=== PATIENT | male | born 1990 | race Caucasian/White ===

== ENCOUNTER 2020-08-13 11:10 | Inpatient (IN) | payer BC ==
[2020-08-13] VITALS: BP 131/85
[~2020-08-13] VITALS: Ht 182.9 cm; Wt 117.0 kg
--- NOTE | 2020-08-13 11:22 | NUR ---
PT TO ROOM WITH A STAEDY GAIT.
[2020-08-13] MEDS ORDERED: NAPROXEN250 MG PO (11:25)
[2020-08-13] MEDS ORDERED: METOPROL TAR25 MG PO (11:25)
[2020-08-13] MEDS ORDERED: LISINOPRIL20 MG PO (11:25)
[2020-08-13] MEDS ORDERED: CYCLOBENZAPR5 MG PO (11:26)
[2020-08-13] MEDS ORDERED: METFORMIN HCL500 M2 PO (11:26)
[2020-08-13 12:07] LABS: HEMATOCRIT 44.6 % (39.0-50.0); HEMOGLOBIN 14.4 g/dl (14.0-18.0); IMMATURE GRANULOCYTES 1.1 % (0.0-5.0); MEAN CELL VOLUME 84.2 fL CALC (80.0-100.0); MEAN CORPUSCULAR HGB 27.2 pG CALC (26.0-32.0); MEAN CORPUSCULAR HGB CONC 32.3 g/dL CAL (32.0-36.0); NEUT# 16.47 thou/uL (1.82-7.42); RED BLOOD COUNT 5.3 mill/uL (4.70-6.10)
--- NOTE | 2020-08-13 12:09 | NUR ---
PT RESTING IN BED. NO DISTRESS. STABLE ON MONIT. OR. CALL LIGHT WITHIN REACH
[2020-08-13 12:24] LABS: ALBUMIN 4.4 g/dL (3.2-5.0); ALKALINE PHOSPHATASE 83 u/l (38-126); AMYLASE 346 u/l (30-110); ANION GAP 13 (6-22 (CALC)); BILIRUBIN, TOTAL 0.9 mg/dL (0.0-1.4); BUN 13 mg/dL (9-20); BUN/CREATININE RATIO 12 (12-20 (CALC)); CARBON DIOXIDE 29 mmol/l (22-30); CHLORIDE 97 mmol/l (95-108); CREATININE 1.1 mg/dL (0.7-1.3); GFR > 60 ML/MIN (>=60 (CALC)); GFR FOR AFR.AMER. > 60 ML/MIN (>=60 (CALC)); LIPASE 1825 u/l (23-300); POTASSIUM 5.1 mmol/l (3.5-5.1); SGOT/AST 34 u/l (17-59); SODIUM 134 mmol/l (137-146); TOTAL PROTEIN 7.9 g/dL (6.3-8.2)
[2020-08-13 12:35] LABS: MYOGLOBIN 63 ng/mL (0 - 121)
[2020-08-13 12:54] LABS: URINE BILIRUBIN - DIPSTICK NEGATIVE (NEGATIVE); URINE BLOOD DIPSTICK NEGATIVE (NEGATIVE); URINE COLOR YELLOW; URINE GLUCOSE - DIPSTICK NEGATIVE (NEGATIVE); URINE KETONE TRACE mg/dL (NEGATIVE); URINE LEUK ESTERASE NEGATIVE (NEGATIVE); URINE PH 6.5 (4.5-8.0); URINE PROTEIN - DIPSTICK >=300 mg/dL (NEG-TRACE); URINE SPECIFIC GRAVITY >=1.030
[2020-08-13 12:56] LABS: URINE EPITHELIAL CELLS FEW EPI/hpf (0-FEW); URINE MUCUS MODERATE hpf (NONE-FEW); URINE NITRITE - DIPSTICK NEGATIVE (Negative)
--- NOTE | 2020-08-13 13:00 | NUR ---
PT REPORTS PAIN IMPROVED BUT STILL WITH DISCOMFORT. WILL CONTINUE TO MONITOR. NO OTHER CONCERNS VOICED.
--- NOTE | 2020-08-13 14:08 | NUR ---
PT RESTING. REPORT PAIN MUCH IMPROVED. WILL CONTINUE TO MONITOR.
--- NOTE | 2020-08-13 15:48 | NUR ---
REPORT [facility]IV[facility]
[2020-08-13 16:04] VITALS: BP 158/80
--- NOTE | 2020-08-13 16:04 | NUR ---
PATIENT ARRIVED ON FLOOR AT THIS TIME FROM ED. PATIENT ALERT AND ORIENTED X 3 PATIENT ROOM ORIENTATION GIVEN TO INCLUDE ROOM SAFETY AND HOW TO USE CALL LIGHT. SIDERAILS ARE UP X 2. GOVERNMENT SERVICES PROFESSIONAL DONE SEE INTERVENITONS. LUNG TADEO ARE CLEAR AT THIS TIME IN ALL FOUR LUNG TADEO. BOWEL SOUNDS ARE PRESENT IN ALL FOUR QUADRANTS AND PATIENT STATED HE HAD A BOWEL MOVEMENT THIS AM. PATIENT DOES PRESENT WITH TEMPRATURE OF 99.5 AT THIS TIME. PATIENT STATES HIS PAIN LEVEL IS A 7 CURRENTLY. PATIENT HAS TELE MONITOR ON AND IS BEING MONITORED BY ED. PATIENT PRESENTS WITH NO KNOWN OPEN SKIN ISSUES AT THIS TIME.
--- NOTE | 2020-08-13 16:28 | NUR ---
650MG OF TYLENOL GIVEN FOR TEMP OF 99.5 AT THIS TIME. WILL REASSESS.
--- NOTE | 2020-08-13 17:14 | NUR ---
2MG OF MORPHINE GIVEN IV AT THIS TIME FOR PAIN IN UPPER LEFT ABDOMEN. PATIENT STATES HIS PAIN LEVEL IS A 7 OUT OF THE PAIN SCALE OF 0-10 WILL CONTINUE TO MONITOR.
--- NOTE | 2020-08-13 18:25 | NUR ---
PATIENT REASSESSED AT THIS TIME AND IT IS NOW 99.8. ICE PACKS APPLIED UNDER ARMPITS AT THIS TIME. PATIENT REMINDED TO CALL NURSE OF ANY CHANGES.
[2020-08-13 19:00] VITALS: BP 154/87
--- NOTE | 2020-08-13 19:57 | NUR ---
ON 1899 VITAL SIGNS NOTED THAT PT VS WERE, 101.2,154/87,107,20,95%. IT IS TOO EAARLY FOR ANOTHER DOSE OF TYLENOL. NOTIFIED HAND STRAIGHTENER AND ADVISED OF VS AND THAT PT HAS A WBC LEVEL OF 20.3. PER MD INCREASE NS TO 150ML/HR, MOTRIN 600MG BID NEEDED, AND NO ORDERS FOR ABT'S AT THIS TIME. BLOOD CULTURES ARE PENDING. WILL CONTINUE TO MONITOR AND WILL RECHECK VS IN APPROXIMATLY 45MIN.
--- NOTE | 2020-08-13 20:54 | NUR ---
TEMP RECHECKED, 99.8. WILL MONITOR. NO S/S OF DISTRESS. PT C/O PAIN IN ABDOMEN/BACK. [id number] ASSESSMENTS COMPLETED, SEE DOCUMENTATION. SAFETY PRECAUTIONS IN PLACE, BED IN LOWEST POSITION, CALL LIGHT WITHIN REACH.
--- NOTE | 2020-08-13 22:19 | NUR ---
RECIEVED CALL FROM ER INDICATING THAT PATIENT HR IS RUNNING HIGH 120'S AND LOW 130'S. SPOKE WITH PHYSICIAN, NEW LAB ORDERS ORDERED, DILAUDID ORDERED, INCREASE OF FLUIDS. ALL ORDERS PUT IN BY PHYSICIAN. WILL MONITOR HIS PAIN Q2HR UNITL VS IMPROVE. ABT ORDERED.
[2020-08-13 22:35] VITALS: BP 143/88
[2020-08-14] VITALS (7 sets, daily range): BP systolic 128–166; BP diastolic 80–97
--- NOTE | 2020-08-14 00:10 | NUR ---
PT RESTING QUIETLY IN BED WITH EYES CLOSED. FLUIDS CONTINUE AT 200ML/HR. DILAUDID EFFECTIVE FOR PAIN AT THIS TIME. SECOND IV STARTED TO RIGHT WRIST WITHOUT DIFFICULTY. 1ST DOSE OF ZOSYN ADMINSTERED WITHOUT COMPLICATIONS. NO S/S OF ADVERSE REACTIONS R/T IV ABT. FEVER HAS DECREASED TO 98.7. NO S/S OF DISTRESS NOTED. NO COMPLAITS VOICED AT THIS TIME. WILL MONITOR
--- NOTE | 2020-08-14 03:27 | NUR ---
ON ROUNDS PRINTER SLOTTER HELPER NOTED THAT PT HR WAS UP TO 130 AND HIS O2 SATURATIONS WERE DOWN TO 85%, UPON ASSESSMENT PT DENIES SOB, NO S/S OF DISTRESS NOTED. PLACED PT ON O2 @ 2L VIA NC. O2 SATURATIONS CAME UP TO 95%. ON SHIFT RN AGREED WITH COURSE OF ACTION, LEAVING ON THE OXYGEN AT THIS TIME. WILL CONTINUE TO MONITOR PT THROUGHOUT THE SHIFT.
--- NOTE | 2020-08-14 04:29 | NUR ---
PT RESTING IN BED, VS ARE STABILIZING. O2 CONINUES AT THIS TIME FOR LOW SATURATIONS. PT TOLERATING O2 WELL. NO COMPLAINTS VOICED. PAIN CONTROLLED WITH IV DILAUDID. BREATHING EVEN AND UNLABORED, DENIES SOB. HR REMAINS IN THE HIGH 120'S-LOW 130'S. ASYMPTOMATIC FOR TACHYCARDIA. PT DENIES CHEST PAIN AND DENIES PALPITATIONS. SAFETY PRECAUTIONS ARE IN PLACE, BED IN LOWEST POSITION, CALL LIGHT WITHIN REACH. WILL MONITOR
[2020-08-14 04:54] LABS: MEAN CELL VOLUME 86.3 fL CALC (80.0-100.0); MEAN CORPUSCULAR HGB 27.1 pG CALC (26.0-32.0); MEAN CORPUSCULAR HGB CONC 31.4 g/dL CAL (32.0-36.0); RED BLOOD COUNT 4.39 mill/uL (4.70-6.10); RED CELL DISTRI WIDTH 14.2 % (11.5-15.5)
[2020-08-14 04:58] LABS: HEMATOCRIT 37.9 % (39.0-50.0); HEMOGLOBIN 11.9 g/dl (14.0-18.0)
[2020-08-14 05:08] LABS: ALKALINE PHOSPHATASE 62 u/l (38-126); AMYLASE 231 u/l (30-110); ANION GAP 10 (6-22 (CALC)); BILIRUBIN, TOTAL 0.9 mg/dL (0.0-1.4); BUN 8 mg/dL (9-20); BUN/CREATININE RATIO 9 (12-20 (CALC)); CARBON DIOXIDE 24 mmol/l (22-30); CHLORIDE 103 mmol/l (95-108); CREATININE 0.9 mg/dL (0.7-1.3); GFR > 60 ML/MIN (>=60 (CALC)); GFR FOR AFR.AMER. > 60 ML/MIN (>=60 (CALC)); HDL CHOLESTEROL 28 mg/dL (>=40); LIPASE 1084 u/l (23-300); POTASSIUM 4.3 mmol/l (3.5-5.1); SGOT/AST 21 u/l (17-59); SODIUM 133 mmol/l (137-146); TOTAL CHOLESTEROL 139 mg/dl (0-199)
[2020-08-14 05:11] LABS: ALBUMIN 3.3 g/dL (3.2-5.0); TOTAL PROTEIN 5.8 g/dL (6.3-8.2); TOTAL TRIGLYCERIDES 516 mg/dl (30-149)
--- NOTE | 2020-08-14 07:30 | NUR ---
SHIFT CHANGE REPORT, PT AWAKE ALERT AND ORIENTED RESTING IN BED, C/O ABD PAIN @ 5/10 AT THIS TIME, IVF INFUSING, TELE MONITOR IN PLACE, PAIN CONCERN ADDRESSED, CALL BUTTERFIELD IN REACH AND BED LOCKED IN LOWEST POSITION.
--- NOTE | 2020-08-14 10:03 | NUR ---
BEING TRANSPORTED OFF UNIT NOW VIA W/C BY STAFF TO [facility], PT INFORMED OF PROCEDURE AND STATED UNDERSTANDING.
--- NOTE | 2020-08-14 10:24 | NUR ---
JUST RETURNED FROM PROCEDURE, SETTLED IN BED, OFERED ICE CHIPS ADVISED BY , WILL CONTINUE TO MONITOR.
--- NOTE | 2020-08-14 11:41 | NUR ---
RESTING IN BED, LIQUID MEAL OFFERED ORDERED BY MD, PAIN ISSUES ADDRESSED, NO NEW COMPLAINS, WILL CONTINUE TO MONITOR.
--- NOTE | 2020-08-14 11:45 | NUR ---
STORE SALES CONSULTANT JUST INFORMED HR IN 130'S, ON ASSESSMENT OF PT HE WAS SEEN RESTING IN BED CONVERSING ON PHONE, ALREADY AWARE OF DIEUDONNE.-
--- NOTE | 2020-08-14 16:00 | NUR ---
SITTING UP AT BEDSIDE VOMITTING, NOTIFIED AND WROTE ORDERS, PT ALSO C/O HEADACHE, ALL CONCERNS ADDRESSED, WILL CONTINUE TO MONITOR.
--- NOTE | 2020-08-14 20:00 | NUR ---
PHYSICAL ASSESMENT COMPLETE. PT CURRENTLY DENIES PAIN OR DISCOMFORT. SCHEDULED MEDICATIONS AND PRN MEDICATION ADMINISTERED, SEE E-MAR. PT DENIES ANY NEEDS AT THIS TIME. PLAN OF CARE REVIEWED WITH DAUGHTER. PT VERY CONFUSED AND DISORIENTED. ITEMS WITHIN REACH, BED LOCKED IN LOW POSITION W/ BEDRAILS UP X2. CALL BUTTERFIELD WITHIN REACH, AGREES TO CALL PRN.
--- NOTE | 2020-08-15 01:30 | NUR ---
PT LAYING IN BED WITH EYES CLOSED, APPEARS TO BE SLEEPING, APPEARS COMFORTABLE AND IN NO DISTRESS. RESPIRATIONS REGULAR AND UNLABORED. ITEMS REMAIN WITHIN REACH, CALL BUTTERFIELD REMAINS WITHIN REACH. BED REMAINS LOCKED AND IN LOW POSITION WITH BEDRAILS UP X2. WILL CONTINUE TO MONITOR.
[2020-08-15 03:55] VITALS: BP 160/88
--- NOTE | 2020-08-15 04:01 | NUR ---
PT RESTING IN BED, NO SIGNS OF DISTRESS NOTED, RESP EVEN AND UNLABORED. PT VOICES NO NEEDS OR COMPLAINTS AT THIS TIME. CALL LIGHT IN REACH, CONTINUE TO MONITOR.
[2020-08-15 05:09] LABS: HEMOGLOBIN 10.9 g/dl (14.0-18.0); MEAN CELL VOLUME 89.1 fL CALC (80.0-100.0); MEAN CORPUSCULAR HGB 27.7 pG CALC (26.0-32.0); MEAN CORPUSCULAR HGB CONC 31.1 g/dL CAL (32.0-36.0); RED BLOOD COUNT 3.93 mill/uL (4.70-6.10); RED CELL DISTRI WIDTH 14.2 % (11.5-15.5)
[2020-08-15 05:22] LABS: ALKALINE PHOSPHATASE 63 u/l (38-126); ANION GAP 11 (6-22 (CALC)); BILIRUBIN, TOTAL 0.6 mg/dL (0.0-1.4); BUN 9 mg/dL (9-20); BUN/CREATININE RATIO 10 (12-20 (CALC)); CARBON DIOXIDE 25 mmol/l (22-30); CHLORIDE 102 mmol/l (95-108); CREATININE 0.9 mg/dL (0.7-1.3); GFR > 60 ML/MIN (>=60 (CALC)); GFR FOR AFR.AMER. > 60 ML/MIN (>=60 (CALC)); LIPASE 332 u/l (23-300); POTASSIUM 4.1 mmol/l (3.5-5.1); SGOT/AST 21 u/l (17-59); SODIUM 135 mmol/l (137-146); TOTAL PROTEIN 5.6 g/dL (6.3-8.2)
--- NOTE | 2020-08-15 07:05 | NUR ---
REPORT RECEIVED FROM JILLIAN ZAIDI
[2020-08-15 07:45] VITALS: BP 155/89
--- NOTE | 2020-08-15 07:45 | NUR ---
PT RESTING AT BEDSIDE,A&O X3;VS OBTAINED AND ASSESSMENT COMPLETED;PT REPORTS HEADACHE PAIN RATING 4/10 ON THE PAIN SCALE AND REQUESTS PRN MOTRIN, PT MEDICATED PER EMAR ORDERS;RESPIRATIONS EVEN AND UNLABORED ON RA,CLEAR LUNG SOUNDS;ABDOMEN DISTENDED/SOFT ON PALPATION AND ACTIVE IN ALL 4 QUADRANTS;STRONG PEDAL PULSES;SKIN INTACT;TELE MONITORING IN PLACE;#20G TO RAC REMOVED WITH CATHETER INTACT DUE TO INFILTRATION;#20G TO LEFT WRIST INFUSING NS @ 200ML/HR,SITE APPEARS HEALTHY;ACCUCHECK 163, PT COVERED WITH SLIDING SCALE INSULIN PER ORDER;NPO DIET REINFORCED AND PT VERBALIZES UNDERSTANDING;PT ENCOURAGED TO CALL FOR ASSISTANCE IF NEEDED;FALL PRECAUTIONS IN PLACE WITH CALL LIGHT IN REACH;WILL CONTINUE TO MONITOR
--- NOTE | 2020-08-15 08:30 | NUR ---
AT BEDSIDE DISCUSSING POC.
--- NOTE | 2020-08-15 09:15 | NUR ---
AT BEDSIDE DISCUSSING POC WITH PT.
--- NOTE | 2020-08-15 09:30 | NUR ---
#20G TO LEFT WRIST REMOVED BY PATIENT WITH CATHETER INTACT,NEW SITE TO BE STARTED.
--- NOTE | 2020-08-15 09:50 | NUR ---
NEW #22G STARTED TO RIGHT HAND ON 1ST ATTEMPT BY THIS WRITTER, PT TOLERATED WELL AND IVF RESTARTED AT THIS TIME;WILL CONTINUE TO MONITOR
[2020-08-15 10:20] VITALS: BP 129/79
--- NOTE | 2020-08-15 11:15 | NUR ---
PT OOB RESTING IN RECLINER;RESPIRATIONS REMAIN EVEN AND UNLABORED ON RA;PT DENIES ANY CURRENT PAIN OR DISCOMFORTS;TELE MONITORING IN PLACE;IV SITE PATENT INFUSING NS @ 100ML/HR PER ORDER AND ABX HUNG AT THIS TIME;ACCUCHECK 157, PT COVERED WITH SLIDING SCALE INSULIN PER ORDER;PT DENIES ANY ADDITIONAL NEEDS;ENCOURAGED TO CALL FOR ASSISTANCE IF NEEDED;CALL LIGHT IN REACH;WILL CONTINUE TO MONITOR
[2020-08-15 15:05] VITALS: BP 134/81
--- NOTE | 2020-08-15 15:20 | NUR ---
PT OOB RESTING IN RECLINER WITH SPOUSE AT BEDSIDE;RESPIRATIONS EVEN AND UNLABORED ON RA;PT REPORTS HEADACHE PAIN RATING 2/10 ON THE PAIN SCALE AND REQUESTS PAIN MEDICATION,PT MEDICATED WITH PRN TYLENOL 650MG PO;TELE MONITORING IN PLACE;#22G TO RIGHT HAND CONTINUES TO INFUSE NS WITH EASE;PT DENIES ANY ADDITIONAL NEEDS AND IS ENCOURAGED TO CALL FOR ASSISTANCE IF NEEDED;CALL LIGHT IN REACH;WILL CONTINUE TO MONITOR
[2020-08-15 18:45] VITALS: BP 159/99
--- NOTE | 2020-08-15 20:24 | NUR ---
PHYSICAL ASSESMENT COMPLETE. PT C/O PAIN AND DISCOMFORT. SCHEDULED MEDICATIONS AND PRN MEDICATION ADMINISTERED, SEE E-MAR. PT DENIES ANY NEEDS AT THIS TIME. PLAN OF CARE REVIEWED, PT DENIES QUESTIONS, VERBALIZES UNDERSTANDING. ITEMS WITHIN REACH, BED LOCKED IN LOW POSITION W/ BEDRAILS UP X2. CALL BUTTERFIELD WITHIN REACH, AGREES TO CALL PRN.
[2020-08-15 23:30] VITALS: BP 122/81
--- NOTE | 2020-08-16 00:33 | NUR ---
PT SLEEPING IN LAZY BOY CHAIR. PT REQUESTED AND WAS GIVEN PAIN MEDICATION. WILL CONTINUE TO MONITOR.
[2020-08-16 03:22] VITALS: BP 104/70
[2020-08-16 05:28] LABS: HEMATOCRIT 37.1 % (39.0-50.0); HEMOGLOBIN 11.2 g/dl (14.0-18.0); MEAN CELL VOLUME 89.8 fL CALC (80.0-100.0); MEAN CORPUSCULAR HGB 27.1 pG CALC (26.0-32.0); MEAN CORPUSCULAR HGB CONC 30.2 g/dL CAL (32.0-36.0); RED BLOOD COUNT 4.13 mill/uL (4.70-6.10); RED CELL DISTRI WIDTH 14.3 % (11.5-15.5)
[2020-08-16 06:02] LABS: ALBUMIN 3.5 g/dL (3.2-5.0); ALKALINE PHOSPHATASE 73 u/l (38-126); ANION GAP 13 (6-22 (CALC)); BILIRUBIN, TOTAL 0.6 mg/dL (0.0-1.4); BUN 12 mg/dL (9-20); BUN/CREATININE RATIO 14 (12-20 (CALC)); CARBON DIOXIDE 25 mmol/l (22-30); CHLORIDE 101 mmol/l (95-108); CREATININE 0.9 mg/dL (0.7-1.3); GFR > 60 ML/MIN (>=60 (CALC)); GFR FOR AFR.AMER. > 60 ML/MIN (>=60 (CALC)); LIPASE 158 u/l (23-300); POTASSIUM 4.2 mmol/l (3.5-5.1); SGOT/AST 24 u/l (17-59); SODIUM 134 mmol/l (137-146); TOTAL PROTEIN 6.5 g/dL (6.3-8.2)
[2020-08-16 07:15] VITALS: BP 110/80
--- NOTE | 2020-08-16 07:15 | NUR ---
PATIENT UP IN CHAIR AT THIS TIME. PATIENT DENIES ANY NEEDS CURRENTLY. LOCAL BULK DRIVER DONE SEE INTERVENTIONS. LUNG TADEO CLEAR/BOWEL SOUNDS PRESENT IN ALL FOUR QUADS. SIDERAILS ARE UP ON BED AND CALL LIGHT IS WITHIN REACH. TELE MONITOR ON AND BEING MONITORED BY ED.
[2020-08-16] MEDS ORDERED: CIPROFLOXACN500 MG PO (09:54)
[2020-08-16] MEDS ORDERED: METRONIDAZOL500 MG PO (09:54)
[2020-08-16] MEDS ORDERED: TRICOR48 MG PO (09:54)
[2020-08-16] MEDS ORDERED: LORTAB 5/3255 MG PO (09:55)
[2020-08-16] MEDS ORDERED: PROTONIX40 M2 PO (10:39)
[2020-08-16 10:45] VITALS: BP 125/88
--- NOTE | 2020-08-16 11:33 | NUR ---
PATIENT D/C AT THIS TIME PATIENT VERBALIZES UNDERSTANDING OF D/C INSTRUCTIONS. IV REMOVED CATH INTACT. TELE MONITORED REMOVED ED NOTIFIED.
--- NOTE | 2020-08-16 11:48 | NUR ---
Discharge instructions given. Patient verbalizes understanding of same. Discharged in stable condition via Wheelchair to Home with family. All belongings sent with pt. PATIENT LEFT WITH .
== END 2020-08-16 11:45 | disposition home or self-care (01) | DRG 439 ==
LOC: ED 11:10 → ED-I 14:04 → ED 14:17 → MS2 14:18
PROVIDERS: Emergency Medicine; ADMIT Internal Medicine; ATTEND Internal Medicine
DX: K85.90 Acute pancreatitis without necrosis or infection, unspecified (principal); K57.92 Diverticulitis of intestine, part unspecified, without perforation or abscess without bleeding; E78.1 Pure hyperglyceridemia; E11.9 Type 2 diabetes mellitus without complications; I10 Essential (primary) hypertension; F17.210 Nicotine dependence, cigarettes, uncomplicated; Z80.0 Family history of malignant neoplasm of digestive organs; Z79.84 Long term (current) use of oral hypoglycemic drugs; Z20.822 Contact with and (suspected) exposure to COVID-19
CPT/HCPCS: J1650; Q9967; S0164

== ENCOUNTER 2021-01-12 17:24 | Emergency (ER) | payer BC ==
[~2021-01-12] VITALS: Ht 182.9 cm; Wt 118.0 kg
[~2021-01-12 17:24] MED LIST: CIPROFLOXACN500 MG PO; CYCLOBENZAPR5 MG PO; LISINOPRIL20 MG PO; LORTAB 5/3255 MG PO; METFORMIN HCL500 M2 PO; METOPROL TAR25 MG PO; METRONIDAZOL500 MG PO; NAPROXEN250 MG PO; PROTONIX40 M2 PO; TRICOR48 MG PO
[2021-01-12] MEDS ORDERED: GABAPENTIN100 MG PO (17:50)
[2021-01-12] MEDS ORDERED: NEXIUM20 MG PO (17:51)
[2021-01-12] MEDS ORDERED: AMOX/K CLAV875 M1 PO (18:20)
[2021-01-12] MEDS ORDERED: ALLEGRA ALLERGY60 MG PO (18:20)
[2021-01-12] MEDS ORDERED: PROBIOTIC FORMU1 CAP PO (18:20)
[2021-01-12 18:35] VITALS: BP 144/97
== END 2021-01-12 18:37 | disposition home or self-care (01) | DRG 153 ==
LOC: ED 17:24
DX: J32.9 Chronic sinusitis, unspecified (principal); I10 Essential (primary) hypertension; E11.40 Type 2 diabetes mellitus with diabetic neuropathy, unspecified; F17.210 Nicotine dependence, cigarettes, uncomplicated; Z79.84 Long term (current) use of oral hypoglycemic drugs

== ENCOUNTER 2021-03-11 01:29 | Inpatient (IN) | payer BC ==
[~2021-03-11] VITALS: Ht 182.9 cm; Wt 117.0 kg
[2021-03-11] VITALS (15 sets, daily range): BP systolic 108–163; BP diastolic 74–106
[~2021-03-11 01:29] MED LIST changes: +ALLEGRA ALLERGY60 MG PO; +AMOX/K CLAV875 M1 PO; +GABAPENTIN100 MG PO; +NEXIUM20 MG PO; +PROBIOTIC FORMU1 CAP PO
[2021-03-11 02:17] LABS: HEMATOCRIT 42.1 % (39.0-50.0); HEMOGLOBIN 15.1 g/dl (14.0-18.0); IMMATURE GRANULOCYTES 0.4 % (0.0-5.0); MEAN CELL VOLUME 84.5 fL CALC (80.0-100.0); MEAN CORPUSCULAR HGB 30.3 pG CALC (26.0-32.0); MEAN CORPUSCULAR HGB CONC 35.9 g/dL CAL (32.0-36.0); NEUT# 14.47 thou/uL (1.82-7.42); RED BLOOD COUNT 4.98 mill/uL (4.70-6.10); RED CELL DISTRI WIDTH 13.7 % (11.5-15.5)
[2021-03-11 02:34] LABS: ALBUMIN 3.6 g/dL (3.2-5.0); AMYLASE 326 u/l (30-110); BUN 8 mg/dL (9-20); BUN/CREATININE RATIO 10 (12-20 (CALC)); CHLORIDE 99 mmol/l (95-108); CREATININE 0.8 mg/dL (0.7-1.3); GFR > 60 ML/MIN (>=60 (CALC)); GFR FOR AFR.AMER. > 60 ML/MIN (>=60 (CALC)); POTASSIUM 4.5 mmol/l (3.5-5.1); SGOT/AST 33 u/l (17-59); SODIUM 131 mmol/l (137-146); TOTAL PROTEIN 7.8 g/dL (6.3-8.2)
[2021-03-11 02:36] LABS: ALKALINE PHOSPHATASE 122 u/l (38-126); ANION GAP 20 (6-22 (CALC)); CARBON DIOXIDE 17 mmol/l (22-30)
[2021-03-11 02:42] LABS: LIPASE 7170 u/l (23-300)
[2021-03-11 02:45] LABS: MYOGLOBIN 38 ng/mL (0 - 121)
[2021-03-11 02:53] LABS: URINE BLOOD DIPSTICK TRACE-INTACT (NEGATIVE); URINE COLOR YELLOW; URINE GLUCOSE - DIPSTICK >=1000 mg/dL (NEGATIVE); URINE KETONE >=80 mg/dL (NEGATIVE); URINE LEUK ESTERASE NEGATIVE (NEGATIVE); URINE PH 6.5 (4.5-8.0); URINE PROTEIN - DIPSTICK 100 mg/dL (NEG-TRACE); URINE SPECIFIC GRAVITY 1.025; URINE UROBILINOGEN - DIPSTICK 0.2 E.U./dL (0.2)
[2021-03-11 02:54] LABS: URINE BILIRUBIN - DIPSTICK SMALL (NEGATIVE)
[2021-03-11 02:55] LABS: URINE NITRITE - DIPSTICK NEGATIVE (Negative)
[2021-03-11 03:06] LABS: URINE BACTERIA FEW hpf; URINE EPITHELIAL CELLS FEW EPI/hpf (0-FEW); URINE WBC 0-2 WBC/hpf (0-5)
[2021-03-11 07:58] LABS: TOTAL CHOLESTEROL 566 mg/dl (0-199)
[2021-03-11 08:01] LABS: CHOLESTEROL HDL RATIO 29.8 (<4.4 (CALC)); HDL CHOLESTEROL 19 mg/dL (>=40)
[2021-03-11 08:26] LABS: TOTAL TRIGLYCERIDES > 5250 mg/dl (30-149)
[2021-03-12] VITALS (14 sets, daily range): BP systolic 92–151; BP diastolic 71–96
[2021-03-12 00:39] LABS: HDL CHOLESTEROL 17 mg/dL (>=40)
[2021-03-12 01:12] LABS: CHOLESTEROL HDL RATIO 17.1 (<4.4 (CALC)); TOTAL CHOLESTEROL 291 mg/dl (0-199); TOTAL TRIGLYCERIDES 3399 mg/dl (30-149); VLDL CHOLESTROL 680 mg/dl (5-56 (CALC))
[2021-03-12 05:35] LABS: HEMATOCRIT 43.6 % (39.0-50.0); HEMOGLOBIN 14.1 g/dl (14.0-18.0); MEAN CELL VOLUME 88.1 fL CALC (80.0-100.0); MEAN CORPUSCULAR HGB 28.5 pG CALC (26.0-32.0); MEAN CORPUSCULAR HGB CONC 32.3 g/dL CAL (32.0-36.0); RED BLOOD COUNT 4.95 mill/uL (4.70-6.10); RED CELL DISTRI WIDTH 14.3 % (11.5-15.5)
[2021-03-12 05:42] LABS: BUN 7 mg/dL (9-20); BUN/CREATININE RATIO 7 (12-20 (CALC)); CHLORIDE 105 mmol/l (95-108); CREATININE 1.1 mg/dL (0.7-1.3); GFR > 60 ML/MIN (>=60 (CALC)); GFR FOR AFR.AMER. > 60 ML/MIN (>=60 (CALC)); MAGNESIUM 1.7 mg/dL (1.6-2.3); POTASSIUM 4.3 mmol/l (3.5-5.1)
[2021-03-12 05:45] LABS: ANION GAP 12 (6-22 (CALC)); CARBON DIOXIDE 27 mmol/l (22-30); SODIUM 140 mmol/l (137-146)
[2021-03-12 14:28] LABS: CHOLESTEROL HDL RATIO 12.9 (<4.4 (CALC)); HDL CHOLESTEROL 24 mg/dL (>=40); TOTAL CHOLESTEROL 313 mg/dl (0-199)
[2021-03-12 14:53] LABS: TOTAL TRIGLYCERIDES 3262 mg/dl (30-149)
[2021-03-13] VITALS (20 sets, daily range): BP systolic 94–155; BP diastolic 43–96
[2021-03-13 02:21] LABS: CHOLESTEROL HDL RATIO 12.2 (<4.4 (CALC))
[2021-03-13 05:25] LABS: MEAN CELL VOLUME 86.8 fL CALC (80.0-100.0); MEAN CORPUSCULAR HGB 27.6 pG CALC (26.0-32.0); MEAN CORPUSCULAR HGB CONC 31.8 g/dL CAL (32.0-36.0); RED BLOOD COUNT 4.02 mill/uL (4.70-6.10); RED CELL DISTRI WIDTH 14.3 % (11.5-15.5)
[2021-03-13 05:33] LABS: HEMATOCRIT 34.9 % (39.0-50.0); HEMOGLOBIN 11.1 g/dl (14.0-18.0)
[2021-03-13 05:52] LABS: ANION GAP 7 (6-22 (CALC)); BUN 8 mg/dL (9-20); BUN/CREATININE RATIO 10 (12-20 (CALC)); CARBON DIOXIDE 25 mmol/l (22-30); CHLORIDE 110 mmol/l (95-108); CREATININE 0.9 mg/dL (0.7-1.3); GFR > 60 ML/MIN (>=60 (CALC)); GFR FOR AFR.AMER. > 60 ML/MIN (>=60 (CALC)); POTASSIUM 3.8 mmol/l (3.5-5.1); SODIUM 138 mmol/l (137-146)
[2021-03-13 12:56] LABS: CHOLESTEROL HDL RATIO 12.2 (<4.4 (CALC))
[2021-03-14] VITALS (10 sets, daily range): BP systolic 116–153; BP diastolic 65–100
[2021-03-14 01:25] LABS: CHOLESTEROL HDL RATIO 13.8 (<4.4 (CALC))
[2021-03-14 05:33] LABS: HEMATOCRIT 35.6 % (39.0-50.0); HEMOGLOBIN 10.8 g/dl (14.0-18.0); MEAN CELL VOLUME 90.4 fL CALC (80.0-100.0); MEAN CORPUSCULAR HGB 27.4 pG CALC (26.0-32.0); MEAN CORPUSCULAR HGB CONC 30.3 g/dL CAL (32.0-36.0); RED BLOOD COUNT 3.94 mill/uL (4.70-6.10); RED CELL DISTRI WIDTH 14.4 % (11.5-15.5)
[2021-03-14 05:49] LABS: CHOLESTEROL HDL RATIO 13.8 (<4.4 (CALC))
[2021-03-14] MEDS ORDERED: FENOFIBRATE160 MG PO (10:00)
== END 2021-03-14 11:10 | disposition home or self-care (01) | DRG 440 ==
LOC: ED 01:29 → ED-I 03:14 → ED 03:32 → MS2 03:33 → ICU 10:06
PROVIDERS: Emergency Medicine; Nurse Practitioner; ADMIT Hospitalist; ATTEND Hospitalist
DX: K85.90 Acute pancreatitis without necrosis or infection, unspecified (principal); K52.9 Noninfective gastroenteritis and colitis, unspecified; E78.1 Pure hyperglyceridemia; I10 Essential (primary) hypertension; E11.40 Type 2 diabetes mellitus with diabetic neuropathy, unspecified; F17.200 Nicotine dependence, unspecified, uncomplicated; Z79.84 Long term (current) use of oral hypoglycemic drugs; Z20.822 Contact with and (suspected) exposure to COVID-19
CPT/HCPCS: J1650; J1956; Q9967; S0164

== ENCOUNTER 2021-11-27 14:45 | Inpatient (IN) | payer BC ==
[~2021-11-27] VITALS: Ht 182.9 cm; Wt 116.0 kg
[~2021-11-27 14:45] MED LIST changes: +FENOFIBRATE160 MG PO
[2021-11-27 15:54] VITALS: BP 141/91
[2021-11-27 16:00] VITALS: BP 142/87
[2021-11-27 16:45] LABS: HEMATOCRIT 40.7 % (39.0-50.0); IMMATURE GRANULOCYTES 0.5 % (0.0-5.0); MEAN CORPUSCULAR HGB 29.3 pG CALC (26.0-32.0); MEAN CORPUSCULAR HGB CONC 36.1 g/dL CAL (32.0-36.0); NEUT# 10.24 thou/uL (1.82-7.42); RED BLOOD COUNT 5.01 mill/uL (4.70-6.10); RED CELL DISTRI WIDTH 13.8 % (11.5-15.5)
[2021-11-27 16:48] LABS: HEMOGLOBIN 14.7 g/dl (14.0-18.0); MEAN CELL VOLUME 81.2 fL CALC (80.0-100.0)
[2021-11-27 17:00] LABS: ALBUMIN 3.7 g/dL (3.2-5.0); ALKALINE PHOSPHATASE 101 u/l (38-126); AMYLASE 617 u/l (30-110); BILIRUBIN, TOTAL 0.7 mg/dL (0.0-1.4); BUN 10 mg/dL (9-20); BUN/CREATININE RATIO 12 (12-20 (CALC)); CHLORIDE 100 mmol/l (95-108); CREATININE 0.8 mg/dL (0.7-1.3); GFR FOR AFR.AMER. > 60 ML/MIN (>=60 (CALC)); GFR OTHER RACES > 60 ML/MIN (>=60 (CALC)); POTASSIUM 4.5 mmol/l (3.5-5.1); SODIUM 132 mmol/l (137-146); TOTAL PROTEIN 7.6 g/dL (6.3-8.2)
[2021-11-27 17:05] LABS: URINE BILIRUBIN - DIPSTICK NEGATIVE (NEGATIVE); URINE BLOOD DIPSTICK SMALL (NEGATIVE); URINE COLOR YELLOW; URINE GLUCOSE - DIPSTICK >=1000 mg/dL (NEGATIVE); URINE KETONE TRACE mg/dL (NEGATIVE); URINE LEUK ESTERASE NEGATIVE (NEGATIVE); URINE PROTEIN - DIPSTICK >=300 mg/dL (NEG-TRACE); URINE SPECIFIC GRAVITY >=1.030; URINE UROBILINOGEN - DIPSTICK 0.2 E.U./dL (0.2)
[2021-11-27 17:06] LABS: URINE NITRITE - DIPSTICK NEGATIVE (Negative); URINE RBC 0-2 RBC/hpf (0-5); URINE WBC 0-2 WBC/hpf (0-5)
[2021-11-27 17:07] LABS: ANION GAP 22 (6-22 (CALC)); CARBON DIOXIDE 15 mmol/l (22-30); SGOT/AST 69 u/l (17-59)
[2021-11-27 17:12] LABS: MYOGLOBIN 38 ng/mL (0 - 121)
[2021-11-27 17:43] LABS: LIPASE 10998 u/l (23-300)
[2021-11-27 20:23] VITALS: BP 132/82
[2021-11-27 20:30] VITALS: BP 129/86
[2021-11-27 21:16] VITALS: BP 134/93
[2021-11-28 04:31] VITALS: BP 123/73
[2021-11-28 04:57] LABS: HEMATOCRIT 42.7 % (39.0-50.0); HEMOGLOBIN 14.5 g/dl (14.0-18.0); IMMATURE GRANULOCYTES 0.5 % (0.0-5.0); MEAN CELL VOLUME 84.6 fL CALC (80.0-100.0); MEAN CORPUSCULAR HGB 28.7 pG CALC (26.0-32.0); NEUT# 10.13 thou/uL (1.82-7.42); RED BLOOD COUNT 5.05 mill/uL (4.70-6.10); RED CELL DISTRI WIDTH 14.1 % (11.5-15.5)
[2021-11-28 05:13] LABS: ALBUMIN 3.8 g/dL (3.2-5.0); ALKALINE PHOSPHATASE 96 u/l (38-126); ANION GAP 20 (6-22 (CALC)); BUN 9 mg/dL (9-20); BUN/CREATININE RATIO 11 (12-20 (CALC)); CARBON DIOXIDE 17 mmol/l (22-30); CHLORIDE 98 mmol/l (95-108); CREATININE 0.8 mg/dL (0.7-1.3); GFR FOR AFR.AMER. > 60 ML/MIN (>=60 (CALC)); GFR OTHER RACES > 60 ML/MIN (>=60 (CALC)); HDL CHOLESTEROL 26 mg/dL (>=40); POTASSIUM 4.8 mmol/l (3.5-5.1); SGOT/AST 39 u/l (17-59); SODIUM 130 mmol/l (137-146)
[2021-11-28 05:22] LABS: CHOLESTEROL HDL RATIO 15.5 (<4.4 (CALC)); TOTAL CHOLESTEROL 404 mg/dl (0-199); TRIGLYCERIDES REFLEX TO dLDL > 1575 mg/dl (30-149)
[2021-11-28 07:30] VITALS: BP 117/78
[2021-11-28 09:18] VITALS: BP 118/78
[2021-11-28 15:23] VITALS: BP 102/63
[2021-11-28 18:58] VITALS: BP 121/77
[2021-11-29 06:39] VITALS: BP 111/67
[2021-11-29 06:40] VITALS: BP 111/67
[2021-11-29 09:26] VITALS: BP 121/78
[2021-11-29 09:29] VITALS: BP 121/78
[2021-11-29 10:21] LABS: ANION GAP 13 (6-22 (CALC)); BUN 6 mg/dL (9-20); BUN/CREATININE RATIO 7 (12-20 (CALC)); CHLORIDE 98 mmol/l (95-108); CREATININE 0.9 mg/dL (0.7-1.3); GFR FOR AFR.AMER. > 60 ML/MIN (>=60 (CALC)); GFR OTHER RACES > 60 ML/MIN (>=60 (CALC)); MAGNESIUM 1.6 mg/dL (1.6-2.3); POTASSIUM 4.3 mmol/l (3.5-5.1); SODIUM 130 mmol/l (137-146)
[2021-11-29 10:22] LABS: CARBON DIOXIDE 23 mmol/l (22-30)
[2021-11-29] MEDS ORDERED: LEVEMIR100 UNIT SC (12:23)
[2021-11-29] MEDS ORDERED: VASCEPA1 GM PO (12:24)
== END 2021-11-29 14:19 | disposition home or self-care (01) | DRG 440 ==
LOC: ED 14:45 → ED-I 16:53 → ED 16:53 → ED-I 17:45 → ED 18:10 → MS2 18:11
PROVIDERS: Emergency Medicine; Nurse Practitioner; ADMIT Internal Medicine; ATTEND Internal Medicine
DX: K85.80 Other acute pancreatitis without necrosis or infection (principal); E11.65 Type 2 diabetes mellitus with hyperglycemia; I10 Essential (primary) hypertension; E11.40 Type 2 diabetes mellitus with diabetic neuropathy, unspecified; E78.1 Pure hyperglyceridemia; F17.200 Nicotine dependence, unspecified, uncomplicated; Z79.84 Long term (current) use of oral hypoglycemic drugs; Z79.899 Other long term (current) drug therapy; Z20.822 Contact with and (suspected) exposure to COVID-19; Z72.89 Other problems related to lifestyle
CPT/HCPCS: Q9967; S0164